=== PATIENT | female | born 1985 | race Caucasian/White ===

== ENCOUNTER 2017-12-09 16:34 | Inpatient (IN) | payer BC ==
[2017-12-09] MEDS ORDERED: Lidocaine 1% 50 ML MDV INJECT PRN (16:59)
[2017-12-09] MEDS ORDERED: Sodium Chloride 0.9% 2.5 ML Syringe FLUSH PRN (16:59)
[2017-12-09] MEDS ORDERED: Butorphanol 1 MG/ML SDV IVPUSH PRN (16:59)
[2017-12-09] MEDS ORDERED: Sodium Chloride 0.9% 10 ML Syringe FLUSH PRN (16:59)
[2017-12-09] MEDS ORDERED: Carboprost Tromethamine 250 MCG/1 ML Amp IM PRN (16:59)
[2017-12-09] MEDS ORDERED: Water For Irrigation,Sterile 1,000 ML Container IRR PRN (16:59)
[2017-12-09] MEDS ORDERED: Methylergonovine 0.2 MG/1 ML Amp IM PRN (16:59)
[2017-12-09] MEDS ORDERED: Terbutaline 1 MG/ML SDV SUBCUT PRN (16:59)
[2017-12-09] MEDS ORDERED: Nalbuphine 10 MG/1 ML Vial IVPUSH PRN (16:59)
[2017-12-09] MEDS ORDERED: Misoprostol 200 MCG Tab PO PRN (16:59)
[2017-12-09] MEDS ORDERED: Oxytocin/0.9 % Sodium Chloride 30 UNIT/500 ML BAG IV SCH ×2 (17:00)
[2017-12-09] MEDS: Lactated Ringers 1,000 ML IV SCH ×2 (17:16→21:42)
[2017-12-09 18:16] LABS: CHLORIDE,CL 108 mmol/L (98-110); SODIUM,NA 135 mmol/L (136-146)
--- NOTE | 2017-12-09 18:59 | PCM.PREANE ---
Preanesthetic Assessment - Procedure Proposed Procedure: labor epidural/ induction for gestational htn - Anesthesia/Transfusion/Family Hx Anesthesia History: Prior Anesthesia Without Reaction Family History of Anesthesia Reaction: No - Review of Systems Other: Reports: None - Physical Assessment ASA Class: 2 Mental Status: Alert & Oriented x3 Airway Class: Mallampati = 1 Dentition: Reports: Normal Dentition ROM/Head Extension: Full - Lab Values: Laboratory Last Values WBC 9.05 K/uL (4.0-11.0) 12/09/17 17:16 RBC 4.19 M/uL (4.30-5.90) L 12/09/17 17:16 Hgb 11.5 g/dL (12.0-16.0) L 12/09/17 17:16 Hct 34.9 % (36.0-46.0) L 12/09/17 17:16 MCV 83.3 fL (80.0-98.0) 12/09/17 17:16 MCH 27.4 pg (27.0-32.0) 12/09/17 17:16 MCHC 33.0 g/dL (31.0-37.0) 12/09/17 17:16 RDW Std Deviation 40.0 fl (28.0-62.0) 12/09/17 17:16 RDW Coeff of Thuan 13 % (11.0-15.0) 12/09/17 17:16 Plt Count 248 K/uL (150-400) 12/09/17 17:16 MPV 11.20 fL (7.40-12.00) 12/09/17 17:16 Nucleated RBC % 0.0 /100WBC 12/09/17 17:16 Nucleated RBCs # 0 K/uL 12/09/17 17:16 Sodium 135 mmol/L (136-146) L 12/09/17 17:16 Potassium 4.2 mmol/L (3.5-5.1) 12/09/17 17:16 Chloride 108 mmol/L (98-110) 12/09/17 17:16 Carbon Dioxide 17 mmol/L (21-31) L 12/09/17 17:16 BUN 8 mg/dL (6.0-23.0) 12/09/17 17:16 Creatinine 0.6 mg/dL (0.6-1.5) 12/09/17 17:16 Est Cr Clr Drug Dosing TNP 12/09/17 17:16 Estimated GFR (MDRD) > 60.0 ml/min 12/09/17 17:16 Glucose 81 mg/dL (60-110) 12/09/17 17:16 Uric Acid 3.4 mg/dL (2.1-6.2) 12/09/17 17:16 Calcium 8.5 mg/dL (8.8-10.8) L 12/09/17 17:16 Total Bilirubin 0.3 mg/dL (0.1-1.5) 12/09/17 17:16 AST 21 IU/L (5-40) 12/09/17 17:16 ALT 35 IU/L (8-54) 12/09/17 17:16 Alkaline Phosphatase 140 (40-150) 12/09/17 17:16 Lactate Dehydrogenase 169 IU/L (125-220) 12/09/17 17:16 Total Protein 6.4 g/dL (6.0-8.0) 12/09/17 17:16 Albumin 3.5 g/dL (3.5-5.0) 12/09/17 17:16 Globulin 2.9 g/dL (2.0-3.5) 12/09/17 17:16 Albumin/Globulin Ratio 1.2 (1.3-2.8) L 12/09/17 17:16 Blood Type O NEGATIVE 12/09/17 17:16 Antibody Screen NEGATIVE 12/09/17 17:16 - Allergies Allergies/Adverse Reactions: Allergies Allergy/AdvReac Type Severity Reaction Status Date / Time No Known Allergies Allergy Verified 07/10/15 21:58 - Blood Blood Available: Yes Product(s) Available: PRBC - Acknowledgements Anesthesia Type Planned: Epidural Pt an Appropriate Candidate for the Planned Anesthesia: Yes Alternatives and Risks of Anesthesia Discussed w Pt/Guardian: Yes Pt/Guardian Understands and Agrees with Anesthesia Plan: Yes PreAnesthesia Questionnaire Other HEENT History: Seasonal allergy Respiratory History: Reports: Asthma (seasonal- has albuterol if needed rarely uses) Gastrointestinal History: Reports: GERD Genitourinary History: Reports: Renal Calculus Other Genitourinary History: Kidney stones - Past Surgical History HEENT Surgical History: Reports: Myringotomy w Tube(s) Other HEENT Surgeries/Procedures: [place] teeth extraction Musculoskeletal Surgical History: Reports: ORIF (L) ankle x 3, bunionectomy bilaterally, R) arm fx) Other Musculoskeletal Surgeries/Procedures:: left ankle surgery x3; bilateral bunionectomy, right fracture arm - SUBSTANCE USE Smoking Status *Q: Never Smoker Recreational Drug Use History: No - HOME MEDS Home Medications: Home Meds Vit No.130/Iron/FA [ Vitamins] 07/10/15 [History] - CURRENT (IN HOUSE) MEDS Current Meds: Current Medications Butorphanol Tartrate (Stadol) 1 mg IVPUSH Q1H PRN PRN Reason: Pain Carboprost Tromethamine (Hemabate Ds) 250 mcg IM ASDIRECTED PRN PRN Reason: Post Hemorrhage Lactated Ringer's (Ringers, Lactated) 1,000 mls @ 150 mls/hr IV ASDIRECTED MACY Last Admin: 12/09/17 17:16 Dose: 150 mls/hr Oxytocin/Sodium Chloride (Oxytocin 30 Unit/500 Ml-Ns) 30 unit in 500 mls @ 999 mls/hr IV TITRATE MACY Oxytocin/Sodium Chloride (Oxytocin 30 Unit/500 Ml-Ns) 30 unit in 500 mls @ 2 mls/hr IV TITRATE MACY; 2 MUNITS/MIN PRN Reason: Protocol Last Titration: 12/09/17 18:18 Dose: 4 munits/min, 4 mls/hr Lidocaine HCl (Xylocaine 1%) 50 ml INJECT .ONCE PRN PRN Reason: Laceration repair Methylergonovine Maleate (Methergine) 0.2 mg IM ASDIRECTED PRN PRN Reason: Post Hemorrhage Misoprostol (Cytotec) 200 mcg PO .ONCE PRN PRN Reason: Post Hemorrhage Nalbuphine HCl (Nubain) 10 mg IVPUSH Q1H PRN PRN Reason: Pain (severe 7-10) Sodium Chloride (Saline Flush) 10 ml FLUSH ASDIRECTED PRN PRN Reason: Keep Vein Open Sodium Chloride (Saline Flush) 2.5 ml FLUSH ASDIRECTED PRN PRN Reason: Keep Vein Open Sterile Water (Sterile Water For Irrigation) 1,000 ml IRR ASDIRECTED PRN PRN Reason: delivery Terbutaline Sulfate (Brethine) 0.25 mg SUBCUT ASDIRECTED PRN PRN Reason: Tacysystole
[2017-12-09] MEDS ORDERED: fentaNYL 100 MCG/2 ML SDV ONE (21:49)
[2017-12-09] MEDS ORDERED: Ropivacaine 100 ML ONE (21:50)
[2017-12-09] MEDS ORDERED: Ropivacaine 0.2% 2 MG/ML 20 ML SDV ONE (21:50)
[2017-12-09] MEDS ORDERED: Docusate Sodium 100 MG Cap PO PRN (23:11)
[2017-12-09] MEDS ORDERED: Benzocaine/Menthol 20%-0.5% Spray 78 GM Cannister TOP PRN (23:11)
[2017-12-09] MEDS ORDERED: Lanolin 100% Cream 7 GM Tube TOP PRN (23:11)
[2017-12-09] MEDS ORDERED: Acetaminophen 500 MG Tab PO PRN ×2 (23:11)
[2017-12-09] MEDS ORDERED: Bisacodyl 10 MG Supp RECTAL PRN (23:11)
[2017-12-09] MEDS ORDERED: Witch Hazel Medicated Pads 40/Jar TOP PRN (23:11)
[2017-12-09] MEDS ORDERED: Ibuprofen 800 MG Tab PO PRN (23:11)
[2017-12-09] MEDS ORDERED: oxyCODONE 5 MG Tab PO PRN (23:11)
[2017-12-09] MEDS ORDERED: Ibuprofen 400 MG Tab PO PRN (23:11)
--- NOTE | 2017-12-10 01:03 | PCM48HPAN ---
Post Anesthesia Note - EVALUATION WITHIN 48HRS OF ANESTHETIC Vital Signs in Normal Range: Yes Patient Participated in Evaluation: Yes Respiratory Function Stable: Yes Airway Patent: Yes Cardiovascular Function Stable: Yes Hydration Status Stable: Yes Pain Control Satisfactory: Yes Nausea and Vomiting Control Satisfactory: Yes Mental Status Recovered: Yes
--- NOTE | 2017-12-10 01:31 | OR ---
SURGEON: Cally Ruiz MD DATE OF PROCEDURE: 12/09/2017 PREOPERATIVE DIAGNOSES: 1. Term at 39 weeks and 4 days. 2. Induction of labor. POSTOPERATIVE DIAGNOSES: 1. Term at 39 weeks and 4 days. 2. Induction of labor. 3. Delivered. PROCEDURE: Spontaneous vaginal delivery. ANESTHESIA: Epidural. ESTIMATED BLOOD LOSS: 100 mL. COMPLICATIONS: None. DISPOSITION: Mother and baby stable in Labor and Delivery room, bonding. FINDINGS: Female , weight 3600 grams. Apgars 9 and 9 at 1 and 5 minutes respectively. Grossly normal placenta with 3-vessel cord. Intact perineum. BRIEF HISTORY: [place] is a 31-year-old G2, P1, who was admitted at 39 weeks and 4 days gestation for induction of labor secondary to labile blood pressure within the last 3 weeks. Preeclampsia evaluation has remained negative. Her care was otherwise uncomplicated. On admission, this afternoon, she was 3 cm dilated, 70% effaced, station -2, and oxytocin was commenced as per protocol. Artificial rupture of membrane was performed 3 hours later. At that time, she was 4 cm dilated, with clear amniotic fluid noted. She received epidural for pain management, and within 2 hours of artificial rupture of membranes, she became fully dilated and commenced active pushing. She pushed quite well and brought the baby's head down to a to +4 over one contraction and was set up for delivery in a modified dorsal lithotomy position. The patient's blood pressure remained normotensive throughout the intrapartum period. DESCRIPTION OF PROCEDURE: She had a spontaneous vaginal delivery of a live female infant in direct occipital anterior position, no nuchal cord, clear amniotic fluid at delivery. Anterior and posterior shoulders and the rest of the baby were delivered without difficulty. The baby was vigorous and cried spontaneously at . The baby was delivered onto the maternal abdomen with the nursery nurse attending to her. Delayed cord clamping was performed and the cord was subsequently cut by the father of the baby. With delivery of the , oxytocin infusion was converted to titration for active management of third stage of labor. Cord blood and gas samples were obtained. Placenta was delivered by controlled cord traction and appeared to be complete and intact. Examination of the perineum revealed no lacerations. Vigorous uterine massage was performed and the uterus was found to be well contracted below the umbilicus. The patient tolerated the procedure well. Sponge, needle, and instrument counts were correct at the end of the delivery. ALYSSAUMCHI / ROSANAL /[id number] MTDD
--- NOTE | 2017-12-10 07:57 | PCM.PNPP ---
- General Info Date of Service: 12/10/17 Functional Status: Reports: Pain Controlled, Tolerating Diet, Ambulating, Urinating - Review of Systems General: Denies: Fever, Malaise, Chills HEENT: Denies: Headaches Pulmonary: Denies: Shortness of Breath, Pleuritic Chest Pain Cardiovascular: Denies: Chest Pain, Palpitations, Dyspnea on Exertion Gastrointestinal: Denies: Abdominal Pain Genitourinary: Denies: Dysuria, Incontinence, Retention Musculoskeletal: Reports: No Symptoms Psychiatric: Reports: No Symptoms - General Info Date of Service: 12/10/17 - Patient Data Vital Signs - Most Recent: Last Vital Signs Temp 36.4 C 12/10/17 03:00 Pulse 72 12/10/17 03:00 Resp 16 12/10/17 03:00 BP 116/63 12/10/17 03:00 Pulse Ox 96 12/10/17 03:00 Weight - Most Recent: 215 lb Lab Results - Last 24 Hours: Laboratory Results - last 24 hr 12/09/17 12/09/17 12/09/17 Range/Units 17:16 17:16 17:16 WBC 9.05 (4.0-11.0) K/uL RBC 4.19 L (4.30-5.90) M/uL Hgb 11.5 L (12.0-16.0) g/dL Hct 34.9 L (36.0-46.0) % MCV 83.3 (80.0-98.0) fL MCH 27.4 (27.0-32.0) pg MCHC 33.0 (31.0-37.0) g/dL RDW Std Deviation 40.0 (28.0-62.0) fl RDW Coeff of Thuan 13 (11.0-15.0) % Plt Count 248 (150-400) K/uL MPV 11.20 (7.40-12.00) fL Nucleated RBC % 0.0 /100WBC Nucleated RBCs # 0 K/uL Cord ABG pH (7.18-7.38) Cord ABG Base Excess (-10--2) Cord VBG pH (7.25-7.45) Cord VBG Base Excess (-10--2) Sodium 135 L (136-146) mmol/L Potassium 4.2 (3.5-5.1) mmol/L Chloride 108 (98-110) mmol/L Carbon Dioxide 17 L (21-31) mmol/L BUN 8 (6.0-23.0) mg/dL Creatinine 0.6 (0.6-1.5) mg/dL Est Cr Clr Drug Dosing TNP Estimated GFR (MDRD) > 60.0 ml/min Glucose 81 (60-110) mg/dL Uric Acid 3.4 (2.1-6.2) mg/dL Calcium 8.5 L (8.8-10.8) mg/dL Total Bilirubin 0.3 (0.1-1.5) mg/dL AST 21 (5-40) IU/L ALT 35 (8-54) IU/L Alkaline Phosphatase 140 (40-150) Lactate Dehydrogenase 169 (125-220) IU/L Total Protein 6.4 (6.0-8.0) g/dL Albumin 3.5 (3.5-5.0) g/dL Globulin 2.9 (2.0-3.5) g/dL Albumin/Globulin Ratio 1.2 L (1.3-2.8) Blood Type O NEGATIVE Antibody Screen NEGATIVE Screen (NEGATIVE) RhIG Candidate? Rhogam Indicated 12/09/17 12/09/17 12/10/17 Range/Units 22:53 23:59 04:41 WBC (4.0-11.0) K/uL RBC (4.30-5.90) M/uL Hgb 11.0 L (12.0-16.0) g/dL Hct 33.2 L (36.0-46.0) % MCV (80.0-98.0) fL MCH (27.0-32.0) pg MCHC (31.0-37.0) g/dL RDW Std Deviation (28.0-62.0) fl RDW Coeff of Thuan (11.0-15.0) % Plt Count (150-400) K/uL MPV (7.40-12.00) fL Nucleated RBC % /100WBC Nucleated RBCs # K/uL Cord ABG pH 7.293 (7.18-7.38) Cord ABG Base Excess -7 (-10--2) Cord VBG pH 7.298 (7.25-7.45) Cord VBG Base Excess -5 (-10--2) Sodium (136-146) mmol/L Potassium (3.5-5.1) mmol/L Chloride (98-110) mmol/L Carbon Dioxide (21-31) mmol/L BUN (6.0-23.0) mg/dL Creatinine (0.6-1.5) mg/dL Est Cr Clr Drug Dosing Estimated GFR (MDRD) ml/min Glucose (60-110) mg/dL Uric Acid (2.1-6.2) mg/dL Calcium (8.8-10.8) mg/dL Total Bilirubin (0.1-1.5) mg/dL AST (5-40) IU/L ALT (8-54) IU/L Alkaline Phosphatase (40-150) Lactate Dehydrogenase (125-220) IU/L Total Protein (6.0-8.0) g/dL Albumin (3.5-5.0) g/dL Globulin (2.0-3.5) g/dL Albumin/Globulin Ratio (1.3-2.8) Blood Type Antibody Screen Screen NEGATIVE (NEGATIVE) RhIG Candidate? YES Rhogam Indicated YES, BABY RH POS H Med Orders - Current: Current Medications Acetaminophen (Tylenol Extra Strength) 500 mg PO Q4H PRN PRN Reason: Pain Acetaminophen (Tylenol Extra Strength) 1,000 mg PO Q4H PRN PRN Reason: Pain Benzocaine/Menthol (Dermoplast Pain Relief 20%-0.5% [place]) 78 gm TOP ASDIRECTED PRN PRN Reason: Perineal Comfort Measure Bisacodyl (Dulcolax) 10 mg RECTAL .ONCE PRN PRN Reason: Constipation Docusate Sodium (Colace) 100 mg PO BID PRN PRN Reason: Constipation Emollient Ointment (Lansinoh Hpa) 0 gm TOP ASDIRECTED PRN PRN Reason: Sore Nipples Ibuprofen (Motrin) 400 mg PO Q4H PRN PRN Reason: Pain Ibuprofen (Motrin) 800 mg PO Q6H PRN PRN Reason: Pain Oxycodone HCl (Oxycodone) 5 mg PO Q2H PRN PRN Reason: Pain Witch Starr (Tucks) 1 pad TOP ASDIRECTED PRN PRN Reason: comfort care Discontinued Medications Butorphanol Tartrate (Stadol) 1 mg IVPUSH Q1H PRN PRN Reason: Pain Carboprost Tromethamine (Hemabate Ds) 250 mcg IM ASDIRECTED PRN PRN Reason: Post Hemorrhage Fentanyl (Sublimaze) Confirm Administered Dose 200 mcg .ROUTE .[employer] ONE Stop: 12/09/17 21:50 Last Admin: 12/09/17 23:47 Dose: Not Given Lactated Ringer's (Ringers, Lactated) 1,000 mls @ 150 mls/hr IV ASDIRECTED MACY Last Admin: 12/09/17 21:42 Dose: 999 mls/hr Oxytocin/Sodium Chloride (Oxytocin 30 Unit/500 Ml-Ns) 30 unit in 500 mls @ 999 mls/hr IV TITRATE MACY Oxytocin/Sodium Chloride (Oxytocin 30 Unit/500 Ml-Ns) 30 unit in 500 mls @ 2 mls/hr IV TITRATE MACY; 2 MUNITS/MIN PRN Reason: Protocol Last Titration: 12/09/17 22:53 Dose: 999 mls/hr Ropivacaine (Naropin 0.2%) Confirm Administered Dose 100 mls @ as directed .ROUTE .[employer] ONE Stop: 12/09/17 21:51 Last Admin: 12/09/17 23:48 Dose: Not Given Lidocaine HCl (Xylocaine 1%) 50 ml INJECT .ONCE PRN PRN Reason: Laceration repair Methylergonovine Maleate (Methergine) 0.2 mg IM ASDIRECTED PRN PRN Reason: Post Hemorrhage Misoprostol (Cytotec) 200 mcg PO .ONCE PRN PRN Reason: Post Hemorrhage Nalbuphine HCl (Nubain) 10 mg IVPUSH Q1H PRN PRN Reason: Pain (severe 7-10) Ropivacaine (Naropin 0.2%) Confirm Administered Dose 20 ml .ROUTE .[employer] ONE Stop: 12/09/17 21:51 Last Admin: 12/09/17 23:48 Dose: Not Given Sodium Chloride (Saline Flush) 10 ml FLUSH ASDIRECTED PRN PRN Reason: Keep Vein Open Sodium Chloride (Saline Flush) 2.5 ml FLUSH ASDIRECTED PRN PRN Reason: Keep Vein Open Sterile Water (Sterile Water For Irrigation) 1,000 ml IRR ASDIRECTED PRN PRN Reason: delivery Last Admin: 12/09/17 23:26 Dose: 1,000 ml Terbutaline Sulfate (Brethine) 0.25 mg SUBCUT ASDIRECTED PRN PRN Reason: Tacysystole - Interaction Disposition, : [place] in Room with Family Infant Interaction: Holding Infant Feeding: Breastfed ; Nursed Well Support Person: - Recovery Exam Fundal Tone: Firm Fundal Level: 1 Fingerbreadths Above Umbilicus Fundal Placement: Midline Lochia Amount: Scant Lochia Color: Rubra/Red Perineum Description: Intact, Minimal Bruising/Swelling Episiotomy/Laceration: None Bladder Status: Voiding Urinary Elimination: Voided - Exam General: Alert, Oriented HEENT: Pupils Equal Neck: Supple Lungs: Clear to Auscultation, Normal Respiratory Effort Cardiovascular: Regular Rate, Regular Rhythm GI/Abdominal Exam: Normal Bowel Sounds, Soft, Non-Tender Extremities: Non-Tender, Pedal Edema Skin: Warm Neurological: No New Focal Deficit Psy/Mental Status: Alert, Normal Affect, Normal Mood - Problem List & Annotations (1) Vaginal delivery SNOMED Code(s): 792904709 Code(s): O80 - ENCOUNTER FOR FULL-TERM UNCOMPLICATED DELIVERY Status: Acute Current Visit: Yes - Problem List Review Problem List Initiated/Reviewed/Updated: Yes - My Orders Last 24 Hours: My Active Orders 12/09/17 17:00 Bedrest Bathroom Privileges [RC] ASDIRECTED Communication Order [RC] ASDIRECTED May Shower [RC] ASDIRECTED Notify Provider [RC] PRN Oxygen Therapy [RC] ASDIRECTED Up ad Caity [RC] ASDIRECTED Vital Signs [RC] PER UNIT ROUTINE 12/09/17 23:11 Patient Status [ADT] Routine May Shower [RC] ASDIRECTED Up ad Caity [RC] ASDIRECTED Vital Signs [RC] PER UNIT ROUTINE Acetaminophen [Tylenol Extra Strength] 1,000 mg PO Q4H PRN Acetaminophen [Tylenol Extra Strength] 500 mg PO Q4H PRN Benzocaine/Menthol [Dermoplast Pain Relief 20%-0.5% [place]] 78 gm TOP ASDIRECTED PRN Bisacodyl [Dulcolax] 10 mg RECTAL .ONCE PRN Docusate Sodium [Colace] 100 mg PO BID PRN Ibuprofen [Motrin] 400 mg PO Q4H PRN Ibuprofen [Motrin] 800 mg PO Q6H PRN Lanolin [Lansinoh HPA] See Dose Instructions TOP ASDIRECTED PRN Witch Starr [Tucks] 1 pad TOP ASDIRECTED PRN oxyCODONE 5 mg PO Q2H PRN Assess Lochia [WOMSER] Per Unit Routine Assess Uterine Involution [WOMSER] Per Unit Routine Breast Pump [WOMSER] Per Unit Routine Peripheral IV Discontinue [OM.PC] Routine Resuscitation Status Routine 12/09/17 23:12 Perineal Care [OM.PC] Per Unit Routine 12/09/17 23:59 SCREEN [BBK] Routine RH IMMUNE GLOBULIN [BBK] Routine RHIG WORKUP, [BBK] Routine 12/10/17 Breakfast Regular Diet [DIET] - Assessment Assessment:: PPD#1 s/p , stable and afebrile Delivered late last night but would like to go home tonight. Clinically stable to be discharged - Plan Plan:: Discharge instructions given Nothing in the vagina for 6 weeks Continue PNV May use OTC pain medications PRN Bleeding and infection precautions reviewed S/S of blues/depression reviewed Follow up in 6 weeks at [facility]
[2017-12-10 20:42] VITALS: BP 111/74
== END 2017-12-11 00:45 | disposition home or self-care (01) | DRG 560 ==
LOC: MW.OBCHECK 16:34 → MW.OB 16:40 → MW.OBCHECK 17:22 → OBSVTOIN 22:53 → MW.OB 23:00
PROVIDERS: ADMIT Obstetrics & Gynecology; ATTEND Obstetrics & Gynecology
PROC: 10E0XZZ Delivery of Products of Conception, External Approach (ICD-10-PCS; principal; 2017-12-09)
PROC: 3E033VJ Introduction of Other Hormone into Peripheral Vein, Percutaneous Approach (ICD-10-PCS; 2017-12-09)
PROC: 10907ZC Drainage of Amniotic Fluid, Therapeutic from Products of Conception, Via Natural or Artificial Opening (ICD-10-PCS; 2017-12-09)
DX: O13.4 Gestational [pregnancy-induced] hypertension without significant proteinuria, complicating childbirth (principal); Z3A.39 39 weeks gestation of pregnancy; Z37.0 Single live birth
CPT/HCPCS: 36415; 51702; 59025; 59409; 80053; 82803; 83615; 84550; 85014; 85018; 85027; 85460; 86850; 86900; 86901; A9270-GY; J2590; J2790; J2795; J3010; J7120

== ENCOUNTER 2023-06-19 17:01 | Inpatient (IN) | payer BC ==
[2023-06-19] MEDS ORDERED: Sodium Chloride 0.9% 20 ML SDV IV PRN (17:26)
[2023-06-19] MEDS ORDERED: Water For Irrigation,Sterile 1,000 ML Container IRR PRN (17:26)
[2023-06-19] MEDS ORDERED: Methylergonovine 0.2 MG/1 ML Amp IM PRN (17:26)
[2023-06-19] MEDS ORDERED: Lidocaine 1% 50 ML MDV INJECT PRN (17:26)
[2023-06-19] MEDS ORDERED: Tranexamic Acid 1,000 MG in Sodium Chloride 0.9% 100 ML IV PRN (17:26)
[2023-06-19] MEDS ORDERED: Sodium Chloride 0.9% 10 ML Syringe FLUSH PRN (17:26)
[2023-06-19] MEDS ORDERED: Terbutaline 1 MG/ML SDV SUBCUT PRN (17:26)
[2023-06-19] MEDS ORDERED: Sodium Chloride 0.9% 2.5 ML Syringe FLUSH PRN (17:26)
[2023-06-19] MEDS ORDERED: Ondansetron 4 MG/2 ML SDV IVPUSH PRN (17:26)
[2023-06-19] MEDS ORDERED: Carboprost Tromethamine 250 MCG/1 mL Vial IM PRN (17:26)
[2023-06-19] MEDS ORDERED: Misoprostol 200 MCG Tab PO PRN (17:26)
[2023-06-19] MEDS ORDERED: Oxytocin/0.9 % Sodium Chloride 30 UNIT/500 ML BAG IV SCH ×2 (17:30)
[2023-06-19 17:43] LABS: HEMATOCRIT 36.3 % (36.0-46.0); HEMOGLOBIN 12.4 g/dL (12.0-16.0); MEAN CORPUSCULAR HEMOGLOBIN 30.8 pg (27.0-32.0); MEAN CORPUSCULAR HGB CONC 34.2 g/dL (31.0-37.0); MEAN CORPUSCULAR VOLUME 90.1 fL (80.0-98.0); MEAN PLATELET VOLUME 10.6 fL (7.40-12.00); RED BLOOD CELL COUNT 4.03 M/uL (4.30-5.90); WHITE BLOOD CELL COUNT,WBC 8.46 K/uL (4.0-11.0)
[2023-06-19] MEDS: Lactated Ringers 1,000 ML IV SCH ×2 (18:03→19:55)
[2023-06-19] MEDS ORDERED: Phenylephrine HCl 0.5 MG/5 ML AMP IVPUSH PRN (18:13)
[2023-06-19] MEDS ORDERED: ePHEDrine 50 MG/ML SDV IVPUSH PRN ×2 (18:13)
[2023-06-19] MEDS ORDERED: Ropivacaine HCl/PF 400 MG in Premix Bag 1 BAG EPIDUR SCH (18:15)
[2023-06-20] MEDS ORDERED: Bisacodyl 10 MG Supp RECTAL PRN (02:29)
[2023-06-20] MEDS ORDERED: Witch Hazel Medicated Pads 40/Jar TOP PRN (02:29)
[2023-06-20] MEDS ORDERED: Tranexamic Acid 1,000 MG in Sodium Chloride 0.9% 100 ML IV PRN (02:29)
[2023-06-20] MEDS ORDERED: Benzocaine/Menthol 20%-0.5% Spray 78 GM Cannister TOP PRN (02:29)
[2023-06-20] MEDS ORDERED: Ibuprofen 800 MG Tab PO PRN (02:29)
[2023-06-20] MEDS ORDERED: Methylergonovine 0.2 MG/1 ML Amp IM PRN (02:29)
[2023-06-20] MEDS ORDERED: Ibuprofen 400 MG Tab PO PRN (02:29)
[2023-06-20] MEDS ORDERED: Acetaminophen 500 MG Tab PO PRN ×2 (02:29)
[2023-06-20] MEDS ORDERED: Lanolin 100% Cream 7 GM Tube TOP PRN (02:29)
[2023-06-20] MEDS ORDERED: Docusate Sodium 100 MG Cap PO PRN (02:29)
[2023-06-20 02:57] LABS: PH,UMBILICAL ARTERIAL 7.233 (7.18-7.38); PH,UMBILICAL VENOUS 7.31 (7.25-7.45)
[2023-06-20] MEDS: Prenatal Multivitamin with Calcium/Folic Acid/Iron Tab PO SCH (08:06)
[2023-06-21 06:44] LABS: HEMATOCRIT 36.7 % (36.0-46.0); HEMOGLOBIN 12.5 g/dL (12.0-16.0)
[2023-06-21 07:20] VITALS: BP 130/69; PULSE 59
[2023-06-21] MEDS: Prenatal Multivitamin with Calcium/Folic Acid/Iron Tab PO SCH (09:49)
== END 2023-06-21 12:05 | disposition home or self-care (01) | DRG 560 ==
LOC: MW.OB 17:01 → OBSVTOIN 06-20 02:10 → MW.OB 06-20 07:17
PROVIDERS: ADMIT Obstetrics & Gynecology; ATTEND Obstetrics & Gynecology
PROC: 10E0XZZ Delivery of Products of Conception, External Approach (ICD-10-PCS; principal; 2023-06-20)
PROC: 10907ZC Drainage of Amniotic Fluid, Therapeutic from Products of Conception, Via Natural or Artificial Opening (ICD-10-PCS; 2023-06-20)
PROC: 3E033VJ Introduction of Other Hormone into Peripheral Vein, Percutaneous Approach (ICD-10-PCS; 2023-06-20)
PROC: 3E0R3BZ Introduction of Anesthetic Agent into Spinal Canal, Percutaneous Approach (ICD-10-PCS; 2023-06-20)
PROC: 00HU33Z Insertion of Infusion Device into Spinal Canal, Percutaneous Approach (ICD-10-PCS; 2023-06-20)
DX: O80 Encounter for full-term uncomplicated delivery (principal); Z87.410 Personal history of cervical dysplasia; Z91.040 Latex allergy status; Z98.890 Other specified postprocedural states; Z37.0 Single live birth; Z3A.39 39 weeks gestation of pregnancy
CPT/HCPCS: 36415; 51702; 59025; 59409; 82803; 85014; 85018; 85027; 86592; 86850; 86900; 86901; A9270-GY; J2590; J7120

== ENCOUNTER 2024-11-15 04:56 | Inpatient (IN) | payer BC ==
[2024-11-15] MEDS ORDERED: Butorphanol 2 MG/ML SDV IVPUSH PRN (05:12)
[2024-11-15] MEDS ORDERED: Misoprostol 200 MCG Tab PO PRN (05:12)
[2024-11-15] MEDS ORDERED: Sodium Chloride 0.9% 10 ML Syringe FLUSH PRN (05:12)
[2024-11-15] MEDS ORDERED: Carboprost Tromethamine 250 MCG/1 mL Vial IM PRN (05:12)
[2024-11-15] MEDS ORDERED: Tranexamic Acid in NACL,ISO-OS 1,000 MG in Premix Bag 1 BAG IV PRN (05:12)
[2024-11-15] MEDS ORDERED: Ondansetron 4 MG/2 ML SDV IVPUSH PRN (05:12)
[2024-11-15] MEDS ORDERED: Methylergonovine 0.2 MG/1 ML Amp IM PRN ×2 (05:12→15:29)
[2024-11-15] MEDS ORDERED: Terbutaline 1 MG/ML SDV SUBCUT PRN (05:12)
[2024-11-15] MEDS ORDERED: Lidocaine 1% 50 ML MDV INJECT PRN (05:12)
[2024-11-15] MEDS ORDERED: Water For Irrigation,Sterile 1,000 ML Container IRR PRN (05:12)
[2024-11-15] MEDS ORDERED: Sodium Chloride 0.9% 2.5 ML Syringe FLUSH PRN (05:12)
[2024-11-15] MEDS ORDERED: Sodium Chloride 0.9% 20 ML SDV IV PRN (05:12)
[2024-11-15] MEDS ORDERED: Oxytocin/0.9 % Sodium Chloride 30 UNIT/500 ML BAG IV SCH (05:15)
[2024-11-15 06:20] LABS: HEMATOCRIT 36.1 % (37.0-47.0); HEMOGLOBIN 12.6 g/dL (12.0-16.0); MEAN CORPUSCULAR HGB CONC 34.9 g/dL (32.0-36.0); MEAN CORPUSCULAR VOLUME 88.9 fL (83.0-99.0); MEAN PLATELET VOLUME 10.8 fL (9.4-12.3); PLATELET COUNT,PLT 170 K/uL (150-400); RED BLOOD CELL COUNT 4.06 M/uL (4.10-5.30); WHITE BLOOD CELL COUNT,WBC 7.55 K/uL (3.9-11.3)
[2024-11-15] MEDS: Oxytocin/0.9 % Sodium Chloride 30 UNIT/500 ML BAG IV SCH (06:31)
[2024-11-15] MEDS ORDERED: Phenylephrine HCl In 0.9% NaCl 1 MG/10 ML Syringe IVPUSH PRN (07:56)
[2024-11-15] MEDS ORDERED: ePHEDrine 50 MG/ML SDV IVPUSH PRN (07:56)
[2024-11-15] MEDS ORDERED: dexmedeTOMIDine HCl 200 MCG/2 ML SDV EPIDUR SCH (08:00)
[2024-11-15] MEDS: Ropivacaine HCl/PF 400 MG in Premix Bag 1 BAG EPIDUR SCH (09:27)
[2024-11-15] MEDS: Lactated Ringers 1,000 ML IV SCH (09:30)
[2024-11-15] MEDS ORDERED: Docusate Sodium 100 MG Cap PO PRN (15:29)
[2024-11-15] MEDS ORDERED: Misoprostol 200 MCG Tab RECTAL PRN (15:29)
[2024-11-15 16:34] LABS: PH,UMBILICAL ARTERIAL 7.329 (7.18-7.38); PH,UMBILICAL VENOUS 7.359 (7.25-7.45)
[2024-11-15] MEDS: Acetaminophen 500 MG Tab PO PRN (16:51)
[2024-11-15] MEDS: Benzocaine/Menthol 20%-0.5% Spray 78 GM Cannister TOP PRN (16:51)
[2024-11-15] MEDS: Witch Hazel Medicated Pads 40/Jar TOP PRN (16:51)
[2024-11-15] MEDS: Ibuprofen 800 MG Tab PO PRN (16:51)
[2024-11-15] MEDS: Lanolin 100% Cream 7 GM Tube TOP PRN (16:51)
[2024-11-16 06:19] LABS: HEMOGLOBIN 12.3 g/dL (12.0-16.0)
[2024-11-16 16:51] VITALS: BP 112/70; PULSE 58
== END 2024-11-16 17:45 | disposition home or self-care (01) | DRG 560 ==
LOC: MW.OB 04:56 → OBSVTOIN 15:10 → MW.OB 18:18
PROVIDERS: ADMIT Obstetrics & Gynecology; ATTEND Obstetrics & Gynecology
PROC: 10E0XZZ Delivery of Products of Conception, External Approach (ICD-10-PCS; principal; 2024-11-15)
PROC: 3E0P7VZ Introduction of Hormone into Female Reproductive, Via Natural or Artificial Opening (ICD-10-PCS; 2024-11-15)
PROC: 10907ZC Drainage of Amniotic Fluid, Therapeutic from Products of Conception, Via Natural or Artificial Opening (ICD-10-PCS; 2024-11-15)
PROC: 3E0R3BZ Introduction of Anesthetic Agent into Spinal Canal, Percutaneous Approach (ICD-10-PCS; 2024-11-15)
PROC: 00HU33Z Insertion of Infusion Device into Spinal Canal, Percutaneous Approach (ICD-10-PCS; 2024-11-15)
DX: O80 Encounter for full-term uncomplicated delivery (principal); Z37.0 Single live birth; Z3A.39 39 weeks gestation of pregnancy; Z98.890 Other specified postprocedural states
CPT/HCPCS: 01967; 36415; 59025; 59409; 82803; 85014; 85018; 85027; 86592; 86850; 86900; 86901; A9270-GY; J2590; J2795; J7120